=== PATIENT | female | born 1945 | race Caucasian/White ===

== ENCOUNTER → 2017-12-06 | Outpatient (CLI) | payer OTHER ==
--- NOTE | 2017-12-06 14:59 | DIAGNOSTIC IMAGING REPORT ---
MRI LUMBAR SPINE W/O CONTRAST CLINICAL HISTORY: Low back pain with bilateral leg weakness. TECHNIQUE: Sagittal and axial T1, T2 and STIR images were obtained. COMPARISON STUDY: Outside conventional radiographic study performed November 30, 2017 OBSERVATIONS: Protective Clothing Issuer images reveal a 25 mm T2 bright left renal lesion likely representing a cyst. The vertebral bodies and posterior elements appear intact. There is no abnormal bony signal present to suggest a marrow replacement process. A stone noted is made of several focal fatty rests/hemangiomas. T12-L1 level: There is a circumferential disc bulge asymmetric to the right. There is no significant spinal stenosis. There is right-sided foraminal narrowing L1-2: There is a minimal circumferential disc bulge. There is no significant spinal or foraminal stenosis L2-3: There is a minor circumferential disc bulge. There is no significant spinal or foraminal stenosis L3-4: No disc protrusions or extrusions. No evidence of spinal canal or neural foraminal compromise. L4-5: There is a mild circumferential disc bulge. There is no significant spinal stenosis. There is mild right-sided foraminal narrowing. L5-S1: No disc protrusions or extrusions. No evidence of spinal canal or neural foraminal compromise. The conus medullaris and cauda equina appear normal. IMPRESSION: 1. Mild multilevel spondylitic changes. No significant spinal stenosis 2. Right-sided foraminal narrowing at the T12-L1 level, and L4-5 level. Electronically signed by: Jose Burden M.D. 12/06/2017 2:58 PM Dictated Date/Time: 12/06/2017 2:53 PM
== END | disposition home or self-care (01) ==
LOC: C.MRI 13:15
PROVIDERS: ATTEND Orthopaedic Surgery Orthopaedic Surgery of the Spine
DX: M48.061 Spinal stenosis, lumbar region without neurogenic claudication (principal)

== ENCOUNTER → 2017-12-09 | Outpatient (CLI) | payer OTHER ==
[2017-12-09 16:59] LABS: BASO % 0.2 %; BASO ABS # 0.02 K/uL (0-0.2); EOS % 3.6 %; EOS ABS # 0.46 K/uL (0-0.5); HEMATOCRIT 40.4 % (37-47); HEMOGLOBIN 13.3 g/dL (12.0-16.0); IG# 0.04 K/uL (0.00-0.02); LYMPH % 20.6 %; LYMPH ABS # 2.62 K/uL (1.2-3.4); MEAN CELL VOLUME 85.2 fL (80-100); MEAN CORPUSCULAR HEMOGLOBIN 28.1 pg (25-34); MEAN CORPUSCULAR HGB CONC 32.9 g/dl (32-36); MEAN PLATELET VOLUME 11.5 fL (7.4-10.4); MONO % 5.1 %; MONO ABS # 0.65 K/uL (0.11-0.59); NEUT % 70.2 %; NEUT ABS # 8.93 K/uL (1.4-6.5); PLATELET COUNT 369 K/uL (130-400); RED CELL DISTRIBUTION WIDTH CV 13.6 % (11.5-14.5); RED CELL DISTRIBUTION WIDTH SD 42.6 fL (36.4-46.3); WHITE BLOOD COUNT 12.72 K/uL (4.8-10.8)
== END | disposition home or self-care (01) ==
LOC: C.LABBC 14:06
PROVIDERS: ATTEND Orthopaedic Surgery Orthopaedic Surgery of the Spine
DX: M25.50 Pain in unspecified joint (principal); R26.89 Other abnormalities of gait and mobility; M62.81 Muscle weakness (generalized)